=== PATIENT | male | born 1995 | race African-American/Black ===

== ENCOUNTER 2019-07-26 21:30 | Emergency (ER) | payer MEDICAID ==
[~2019-07-26] VITALS: Ht 185.4 cm; Wt 64.4 kg
[2019-07-26 21:30] VITALS: BP 127/81
[~2019-07-26 21:30] MED LIST: IBUPROFEN400 MG ORAL; SILVADENE CREAM50 GM TOP
--- NOTE | 2019-07-26 21:30 | NUR ---
ED Nurse Note: Pt is aaox4, vss with no acute distress. Pt is cooperative, but agitated. Pt has an abrasion on his left sholder and on his elbow. pt brought in by [employer] c/o behavioral- danger to self and others, per police, pt stated that he wants to fight others. per ems report pt is noncompliant with medication.
--- NOTE | 2019-07-26 21:54 | Emergency Room Report ---
History of Present Illness General Chief Complaint: Behavioral Complaint Source: Patient, EMS, Law Enforcement Present Illness HPI This a 23-year-old male with a history of bipolar mood disorder. He is not on any medication. He presents with chief complaint of aggressive behavior and anxiety. His mom called 911 because he was being aggressive and threatening her and threatened to kill himself. He expressed suicidal thoughts here. He has no particular plan. He said he felt anxious and cannot take it anymore. Please place him on a 5150 hold. Patient admits to drinking alcohol tonight and smoking marijuana. Denies any other drug use. No fever chills but no nausea no vomiting. Allergies: Coded Allergies: No Known Allergies (Unverified , 07/26/19) Patient History Past Medical History: see triage record, old chart reviewed, bipolar Past Surgical History: none Family History: none Social History: tobacco use, ETOH Immunizations: other Reviewed Nursing Documentation: PMH: Agreed; PSxH: Agreed Nursing Documentation-PMH History Of Psychiatric Problem: Yes Review of Systems ENT: Denies: sore throat Cardiovascular: Denies: chest pain, palpitations Gastrointestinal/Abdominal: Denies: nausea, vomiting, diarrhea Musculoskeletal: Denies: back problems Skin: Denies: rash Psychiatric: Reports: prior hx, anxiety, suicidal/homicidal ideations Neurological: Denies: VALDEZ, seizures All Other Systems: negative except mentioned in HPI Physical Exam Vital Signs Date Time Temp Pulse Resp B/P (MAP) Pulse Ox O2 Delivery O2 Flow Rate FiO2 07/26/19 21:23 99.0 96 18 139/82 (101) 99 Room Air Vitals unremarkable Sp02 EP Interpretation: reviewed, normal General Appearance: alert/responsive, no apparent distress, non-toxic Head: normocephalic, atraumatic Eyes: PERRL, EOMI ENT: oropharynx normal Neck: supple/symm/no masses Respiratory: effort normal, no rhonchi, no wheezing Cardiovascular: no murmur, gallop, rub Gastrointestinal: non-tender, no mass, non-distended, no rebound/guarding, normal bowel sounds Musculoskeletal: gait & station normal Neurologic: oriented x3, sensory intact, motor strength/tone normal Skin: no rash, normal palpation Medical Decision Making Diagnostic Impression: Primary Impression: Suicidal ideations Additional Impression: Behavioral disorder ER Course Patient was brought in by police as a 5150. Was calm and cooperative here. Unfortunately there were a couple patients who were matted been agitated. They required multiple nursing staff to deal with them. This time, patient eloped without our knowledge. Police called to see if they can track down patient. Fortunately, patient went back home and his mother contacted us. She was asked to call 911. We also called the police to escort the patient back to the ER here. Patient is medically cleared for psychiatric evaluation. Again he is on a 5150 danger to self and others. Last Vital Signs Date Time Temp Pulse Resp B/P (MAP) Pulse Ox O2 Delivery O2 Flow Rate FiO2 07/26/19 21:23 99.0 96 18 139/82 (101) 99 Room Air Status: improved Disposition: XFER TO PSYCH HOSP/UNIT Condition: Stable Jonnie Johnson MD Jul 26, 2019 21:54
[2019-07-26] MEDS ORDERED: LORazepam Inj 2mg/ml 1ml IV ONE (22:00)
[2019-07-26 22:21] LABS: BASOPHILS % (AUTO) 1.2 % (0.0-2.0); HEMATOCRIT 42.1 % (37.0-47.0); HEMOGLOBIN 15.8 G/DL (12.0-16.0); LYMPHOCYTES % (AUTO) 50.2 % (20.0-45.0); MEAN CORPUSCULAR VOLUME 82 FL (80-99); MONOCYTES % (AUTO) 6.3 % (1.0-10.0); NEUTROPHILS % (AUTO) 40.3 % (45.0-75.0); PLATELET COUNT 256 K/UL (150-450); RED BLOOD COUNT 5.16 M/UL (4.20-5.40); RED CELL DISTRIBUTION WIDTH 10.3 % (11.6-14.8); WHITE BLOOD COUNT 8.6 K/UL (4.8-10.8)
[2019-07-26 22:44] LABS: ANION GAP 13 mmol/L (5-15); BLOOD UREA NITROGEN 16 mg/dL (7-18); CALCIUM 8.9 MG/DL (8.5-10.1); CARBON DIOXIDE 24 MMOL/L (21-32); CHLORIDE 100 MMOL/L (98-107); POTASSIUM 3.7 MMOL/L (3.5-5.1); SODIUM 137 MMOL/L (136-145)
[2019-07-26 22:48] LABS: ALANINE AMINOTRANSFERASE 21 U/L (12-78); ALBUMIN 4.3 G/DL (3.4-5.0); ALBUMIN/GLOBULIN RATIO 1.2 (1.0-2.7); ALKALINE PHOSPHATASE 61 U/L (46-116); ASPARTATE AMINO TRANSFERASE 21 U/L (15-37); BILIRUBIN,TOTAL 0.7 MG/DL (0.2-1.0)
[2019-07-26 23:17] LABS: APPEARANCE,URINE CLEAR; BILIRUBIN, URINE NEGATIVE (NEGATIVE); GLUCOSE, URINE (UA) NEGATIVE (NEGATIVE); KETONES,URINE 3+ (NEGATIVE); LEUKOCYTE ESTERASE ,URINE NEGATIVE (NEGATIVE); NITRITE,URINE NEGATIVE (NEGATIVE); PH,URINE 5 (4.5-8.0); PROTEIN,URINE 2+ (NEGATIVE); UROBILINOGEN,URINE 1 MG/DL (0.0-1.0)
[2019-07-26 23:18] LABS: COLOR,URINE YELLOW
--- NOTE | 2019-07-26 23:40 | NUR ---
ED Nurse Note: Pt left AMA and Mother was informed. Mother, Snow Celestine . Addendum: 07/27/19 at 0120 by [email or web address] Pt Eloped, Mother was informed, and Police were called. Mother, Snowstone Sprague
--- NOTE | 2019-07-26 23:49 | NUR ---
Spoke with [employer] op#[phone] will notify PD to locate patient.
--- NOTE | 2019-07-27 00:25 | NUR ---
GLORIA called back, still looking for patient.
--- NOTE | 2019-07-27 01:30 | NUR ---
Patients mother called stating patient just got home. Advised to call [employer] to bring him back. Also mother was told that we will call [employer] also. GLORIA sherman, spoke with rum processing operator [phone]- will sent PD officers to bring patient back.
--- NOTE | 2019-07-27 01:40 | NUR ---
Dana wilcox in EDM - 07/27/19 at 0217 by [email or web address] ED Nurse Note: Pt arrived with Samuel Osman, at bedside.
[2019-07-27 02:00] VITALS: BP 122/84
--- NOTE | 2019-07-27 02:05 | NUR ---
ED Nurse Note: Pt belongings in locker #1.
--- NOTE | 2019-07-27 02:05 | NUR ---
Patient is back with [employer] officers, sitter at bedside.
--- NOTE | 2019-07-27 02:06 | NUR ---
ED Nurse Note: Pt arrived calm and cooperative. Pt is passive, aaox4, vss and no acute distress. Sitter at bedside.
--- NOTE | 2019-07-27 03:11 | NUR ---
ED Nurse Note: Pt is sleeping with sitter at bedside.
[2019-07-27 03:12] VITALS: BP 115/83
[2019-07-27 05:13] VITALS: BP 118/79
--- NOTE | 2019-07-27 05:20 | NUR ---
ED Nurse Note: Pt in bed with sitter at bedside.
--- NOTE | 2019-07-27 06:08 | NUR ---
Spoke with [employer] refinery operator helper crude unit # 710 asking to locate officer [facility] # [id number] to come back and sign the 5150 for and date and time it. Patient have bed available at [facility]- refinery operator helper crude unit 710 aware.
--- NOTE | 2019-07-27 06:43 | NUR ---
Officer Torsten # [id number] cosigned the 5150 form, spoke with Merna at [facility] and faxed the cosigned hold to [phone] as requested by Merna.
--- NOTE | 2019-07-27 07:10 | NUR ---
ED Nurse Note: Report received from TRACEY Ferguson and was endorsed care.
--- NOTE | 2019-07-27 07:11 | NUR ---
HAND-OFF: Report given to TRACEY Hernandez.
[2019-07-27 07:15] VITALS: BP 130/72
--- NOTE | 2019-07-27 07:15 | NUR ---
ED Nurse Note: Pt resting in bed at this time with sitter at bedside. Pt denies wanting to harm himself or others. Pt is acting cooperative. Vital signs taken. Pt belongings are locked up in locker 1, belongings checklist completed. Pt aaox4, no respiratory or cardiac distress. RN made verbal contract with pt to be safe and cooperative while in the ED, pt verbalized understanding.
--- NOTE | 2019-07-27 07:30 | NUR ---
ED Nurse Note: Pt asked for medication to help him sleep. Spoke with JEFFY Rice and will carry out order.
--- NOTE | 2019-07-27 07:40 | NUR ---
ED Nurse Note: Pt asked for cell phone to keep him calm and entertain himself, pt given cell phone at this time. Sitter at the bedside.
--- NOTE | 2019-07-27 07:52 | NUR ---
ED Nurse Note: Pt has abrasion to left shoulder and abrasion to left elbow, no active bleeding. Pt denies pain.
--- NOTE | 2019-07-27 08:41 | NUR ---
[facility] unable to accept the patient due to patient needs higher accuity
--- NOTE | 2019-07-27 08:42 | NUR ---
clinicals faxed to [facility]
--- NOTE | 2019-07-27 09:09 | NUR ---
ED Nurse Note: Pt is sleeping, sitter at bedside. Breakfast tray at bedside.
--- NOTE | 2019-07-27 09:30 | NUR ---
clinicals faxed to [facility]
--- NOTE | 2019-07-27 10:12 | NUR ---
called [facility] will call back as soon as they review the chart
--- NOTE | 2019-07-27 10:22 | NUR ---
no bed at [facility] no bed avilable at [facility] no bed avilable
--- NOTE | 2019-07-27 12:30 | NUR ---
ED Nurse Note: RN about to take pt vital signs when he became agitated and walked out of room. Will take vitals once pt is calm and cooperative.
--- NOTE | 2019-07-27 12:40 | NUR ---
ED Nurse Note: Pt became agitated and walked out of ED. Sitter was at bedside with pt when he walked out of room. RN attempted to escort pt back to room and pt raised his right hand and stated "I will hit you if you touch me". Security was called. JEFFY Rice notified.
--- NOTE | 2019-07-27 12:50 | NUR ---
ED Nurse Note: Pt escorted back to room by security at this time. Doctor notified, charge nurse notified and pt agreed to have medications given as ordered by ERMD.
[2019-07-27] MEDS ORDERED: LORazepam Inj 2mg/ml 1ml IM ONE (13:00)
[2019-07-27] MEDS ORDERED: Haloperidol 5mg/ml Inj IM ONE (13:00)
--- NOTE | 2019-07-27 13:29 | NUR ---
CALLED [facility]. WILL CALL BACK
--- NOTE | 2019-07-27 13:30 | NUR ---
JAMES LEFT MESSAGE WILL CALL BACK
--- NOTE | 2019-07-27 13:39 | NUR ---
CLINCALS FAXED TO [facility]
--- NOTE | 2019-07-27 14:15 | NUR ---
ED Nurse Note: Sitter at bedside. Pt calm and sleeping in bed.
--- NOTE | 2019-07-27 16:40 | NUR ---
PATIENT HAS BEEN ACCEPTED TO [facility] ROOM 124 B. FOR REPORT TL#[phone] EXT [phone]
[2019-07-27 16:50] VITALS: BP 119/72
--- NOTE | 2019-07-27 16:50 | NUR ---
ED Nurse Note: Pt sleeping at this time. RN woke pt up to assess vital signs, pt cooperative and following commands. Vital signs stable. Sitter at bedside.
--- NOTE | 2019-07-27 17:10 | NUR ---
ED Nurse Note: Spoke with and gave report to Hao RN at [facility].
[2019-07-27 17:30] VITALS: BP 118/73
--- NOTE | 2019-07-27 17:30 | NUR ---
ED Nurse Note: Pt transferred to [facility] for continuation of care by [facility]. Pt belongings given to ems personnel. Pt is calm and cooperative at this time. Pt aaox4, no respiratory or cardiac distress.
== END 2019-07-27 17:30 ==
LOC: EDBD 21:30 → EDSEX 21:30 → EMR 21:46
DX: R45.1 Restlessness and agitation (principal); R45.851 Suicidal ideations
CPT/HCPCS: 36415; 80053; 80307; 81003; 85025; 96372; 96374; G0480; G0481; J1630; Z7502; 99285